=== PATIENT | male | born 1970 | race Caucasian/White ===

== ENCOUNTER 2018-08-13 08:17 | Outpatient (CLI) | payer BC ==
[2018-08-13] MEDS ORDERED: Iopamidol 370 76% 100 ML VIAL ONE (09:00)
--- NOTE | 2018-08-13 09:34 | CT ---
CT ABDOMEN WITH AND WITHOUT CONTRAST CT PELVIS WITH AND WITHOUT CONTRAST: (CT UROGRAM) DATE: 08/13/2018 HISTORY: 48-year-old male with microscopic hematuria. COMPARISON: None TECHNIQUE: IV contrast injected: 100 mL [id number]. Precontrast scan, nephrographic-venous phase scan, and pyelographic-excretory phase scan, performed t hrough entire abdomen and pelvis. FINDINGS: No colonic diverticulitis. No small bowel dilation. No ascites or pneumoperitoneum. No intra-abdomina l or intrapelvic lymphadenopathy. Normal abdominal aorta, appendix, adrenals, pancreas, liver, and spleen. No renal, ureteral, or bladder calculus. Bladder nearly empty prior to injection, and therefo re difficult to evaluate. In excretory phase, urinary bladder has a small volume of excreted IV contrast. Bladder valenzuela appear mildly irregular and mildly thickened, but that could be due to decomp ressed status. It is difficult to rule in or rule out a mild cystitis. The bilateral nephrograms are symmetrical and fairly homogeneous, but there is a 1.6 cm exophytic cyst protruding inferiorly fr om the lung left renal lower pole cortex. No solid renal mass is identified. No hydroureteronephrosis. IMPRESSION: 1. Difficult to evaluate urinary bladder because of the decompressed state. 2. 1.6 cm exophytic left renal lower pole cyst. 3. Otherwise negative.
== END 2018-08-13 08:18 | disposition home or self-care (01) ==
LOC: SCSCT 08:17
PROVIDERS: ATTEND Family Medicine
DX: R31.9 Hematuria, unspecified (principal); N28.1 Cyst of kidney, acquired
CPT/HCPCS: 74178; Q9967

== ENCOUNTER 2020-10-14 18:00 | Outpatient (CLI) | payer BC | END 2020-10-14 18:01 | disposition home or self-care (01) | LOC: SLEEPLAB 18:00 | PROVIDERS: ATTEND Otolaryngology Plastic Surgery within the Head & Neck | DX: G47.33 Obstructive sleep apnea (adult) (pediatric) (principal); R53.83 Other fatigue; R09.89 Other specified symptoms and signs involving the circulatory and respiratory systems; R51.9 Headache, unspecified; R06.83 Snoring; G47.00 Insomnia, unspecified; E66.9 Obesity, unspecified; Z68.35 Body mass index [BMI] 35.0-35.9, adult | CPT/HCPCS: 95806 ==